=== PATIENT | male | born 1970 | race Two or more races ===

== ENCOUNTER 2023-03-24 07:22 | Outpatient (CLI) | payer OTHER | END 2023-03-24 07:38 | disposition home or self-care (01) | LOC: TOM 07:22 | PROVIDERS: ATTEND Internal Medicine | DX: K40.91 Unilateral inguinal hernia, without obstruction or gangrene, recurrent (principal) ==

== ENCOUNTER 2023-12-19 06:15 | Outpatient (CLI) | payer OTHER ==
[2023-12-19 08:11] LABS: PARTIAL THROMBOPLASTIN TIME 28.5 SECONDS (22.0-34.0); PROTHROMBIN TIME 10.9 SECONDS (9.0-11.5)
[2023-12-19] MEDS ORDERED: VALTREX1000 MG (14:44)
== END 2023-12-19 06:16 | disposition home or self-care (01) ==
LOC: LAB 06:15
PROVIDERS: ATTEND Surgery
DX: K40.90 Unilateral inguinal hernia, without obstruction or gangrene, not specified as recurrent (principal); Z01.818 Encounter for other preprocedural examination

== ENCOUNTER 2023-12-28 05:19 | Day surgery (SDC) | payer OTHER ==
[~2023-12-28 05:19] MED LIST: VALTREX1000 MG
[2023-12-28] MEDS ORDERED: ENOXAPARIN SODIUM 40 MG/0.4 ML SYRINGE SUBCUTANEO ONE (10:05)
[2023-12-28] MEDS ORDERED: CEFTRIAXONE SODIUM 2,000 MG VIAL ONE (10:06)
[2023-12-28] MEDS ORDERED: BUPIVACAINE HCL/MPF 0.5% 30ML VIAL ONE (12:33)
[2023-12-28] MEDS ORDERED: METRONIDAZOLE/SODIUM CHLORIDE 500 MG/100 ML PIGGYBACK IV SCH (13:00)
[2023-12-28] MEDS ORDERED: PERCOCET 5-3251 EACH PO (14:21)
[2023-12-28] MEDS ORDERED: CELEBREX200MG PO (14:21)
[2023-12-28] MEDS ORDERED: POLY119PG PO (14:21)
[2023-12-28] MEDS ORDERED: NEURONTIN300 MG PO (14:21)
== END 2023-12-28 17:20 | disposition home or self-care (01) ==
LOC: CIR.AMB 05:19
PROVIDERS: ATTEND Surgery
DX: K40.90 Unilateral inguinal hernia, without obstruction or gangrene, not specified as recurrent (principal); R00.1 Bradycardia, unspecified; M19.90 Unspecified osteoarthritis, unspecified site
CPT/HCPCS: 49650; C1781